=== PATIENT | male | born 1960 | race Caucasian/White ===

== ENCOUNTER 2017-09-07 08:00 | Outpatient (CLI) | payer BC ==
[2017-09-07 13:52] LABS: BASOPHILS # (AUTO) 0.1 10^3/uL (0.0-0.1); BASOPHILS % (AUTO) 0.7 %; EOSINOPHILS # (AUTO) 0.3 10^3/uL (0.0-0.7); EOSINOPHILS % (AUTO) 2.9 %; HCT - HEMATOCRIT 46.7 % (42.0-52.0); HGB - HEMOGLOBIN 15.5 g/dL (14.0-18.0); LYMPHOCYTES # (AUTO) 1.9 10^3/uL (1.5-3.5); LYMPHOCYTES % (AUTO) 17.2 %; MEAN CORPUSCULAR HEMOGLOBIN 29.9 pg (27.0-31.0); MEAN CORPUSCULAR HGB CONC 33.2 g/dL (32.0-36.0); MONOCYTES # (AUTO) 0.8 10^3/uL (0.0-1.0); NEUTROPHILS # (AUTO) 7.9 10^3/uL (1.5-6.6); NEUTROPHILS % (AUTO) 72.2 %; RED BLOOD COUNT 5.18 10^6/uL (4.70-6.10); RED CELL DISTRIBUTION WIDTH 13.7 % (12.0-15.0); UNCORRECTED WHITE BLOOD COUNT 10.9 x10^3/uL; WHITE BLOOD COUNT 10.9 x10^3/uL (4.8-10.8)
[2017-09-07 14:39] LABS: ALBUMIN/GLOBULIN RATIO 1.1 (1.0-2.2); BILIRUBIN,TOTAL 0.9 mg/dL (0.2-1.0); BUN - BLOOD UREA NITROGEN 10 mg/dL (6-20); CALCIUM 9.4 mg/dL (8.5-10.3); CARBON DIOXIDE - CO2 25 mmol/L (21-32); CHLORIDE 103 mmol/L (101-111); CHOL/HDL RATIO 4.6 (<5.0); CHOLESTEROL 202 mg/dL; CREATININE 0.8 mg/dL (0.6-1.2); GFR - MDRD 99 (>89); GLUCOSE 97 mg/dL (70-100); HDL CHOLESTEROL 44 mg/dL; LDL/HDL RATIO 2.8 (<3.6); SODIUM 136 mmol/L (135-145); TRIGLYCERIDES 178 mg/dL; VLDL CHOLESTEROL 36 mg/dL
== END 2017-09-07 08:01 | disposition home or self-care (01) ==
LOC: LAB.WCP 08:00
PROVIDERS: ATTEND Family Medicine
DX: Z00.00 Encounter for general adult medical examination without abnormal findings (principal); I10 Essential (primary) hypertension; Z12.5 Encounter for screening for malignant neoplasm of prostate
CPT/HCPCS: 36415; 80053; 80061; 84153; 85025

== ENCOUNTER 2017-10-01 09:10 | Outpatient (CLI) | payer BC ==
[2017-10-01] MEDS ORDERED: BARIUM SULFATE 148 GM POWDER PO ONE (10:19)
[2017-10-01] MEDS ORDERED: SIMETHICONE/SOD BICARB/CIT AC 1 EACH PACKET PO ONE (10:19)
[2017-10-01] MEDS ORDERED: BARIUM SULFATE 135 ML BOTTLE PO ONE (10:19)
--- NOTE | 2017-10-01 12:49 | XRAY Report ---
UPPER GI WITH AIR: 10/01/2017 CLINICAL INDICATION: Dysphagia. FINDINGS: Initial virtual recruiter view of the abdomen demonstrates a normal bowel gas pattern. Single and isadora ble contrast upper GI was performed. The esophagus is normal in caliber. Tertiary contractions were occasionally visualized. A 13-mm barium pill passed freely through the esophagus and into the stoma ch. No esophageal ulceration or mass lesion is identified. Gastroesophageal reflux was seen through out the course of the study. The stomach demonstrates a normal fold pattern. No gastric ulceration or mass lesion is seen. The duodenal cap distends normally. The duodenal C loop is unremarkable. C ontrast passed freely in the more distal small bowel loops. IMPRESSION: GASTROESOPHAGEAL REFLUX. NO EVIDENCE OF ESOPHAGEAL STRICTURING. NO ULCERATION OR MASS LESION. FLUOROSCOPY TIME: 3 minutes; 27 spot images obtained. JOB #: [id number] EXT JOB #:[id number]
== END 2017-10-01 09:11 | disposition home or self-care (01) ==
LOC: DI 09:10
PROVIDERS: ATTEND Family Medicine
DX: K21.9 Gastro-esophageal reflux disease without esophagitis (principal)
CPT/HCPCS: 74247; A9270

== ENCOUNTER 2017-10-13 07:13 | Day surgery (SDC) | payer BC ==
[2017-10-13] MEDS ORDERED: LACTATED RINGERS 1,000 ML IV ONE ×2 (07:39→09:22)
[2017-10-13] MEDS ORDERED: fentaNYL 100 MCG/2 ML VIAL IVP ONE (08:26)
[2017-10-13] MEDS ORDERED: GLUCAGON 1 MG/ML VIAL IM ONE (08:26)
[2017-10-13] MEDS ORDERED: MIDAZOLAM 2 MG/2 ML VIAL IVP ONE (08:26)
[2017-10-13] MEDS ORDERED: ONDANSETRON 4 MG/2 ML VIAL IVP ONE (08:26)
[2017-10-13] MEDS ORDERED: BENZOCAINE/TETRACAINE/BUTAMBEN SPRAY 56 GM TOP ONE (09:19)
[2017-10-13] MEDS ORDERED: ONDANSETRON ODT 4 MG TABLET ONE (09:58)
[2017-10-13] MEDS ORDERED: ONDANSETRON 4 MG/2 ML VIAL ONE (10:00)
[2017-10-13 10:02] VITALS: BP 107/75
== END 2017-10-13 07:14 | disposition home or self-care (01) ==
LOC: SDS 07:13
PROVIDERS: ATTEND Surgery
PROC: 0DJD8ZZ Inspection of Lower Intestinal Tract, Via Natural or Artificial Opening Endoscopic (ICD-10-PCS; principal; 2017-10-13 08:15)
PROC: 0DB38ZX Excision of Lower Esophagus, Via Natural or Artificial Opening Endoscopic, Diagnostic (ICD-10-PCS; 2017-10-13 08:15)
DX: Z12.11 Encounter for screening for malignant neoplasm of colon (principal); R13.10 Dysphagia, unspecified; K29.80 Duodenitis without bleeding; K20.9 Esophagitis, unspecified
CPT/HCPCS: 43239; 45378; A9270; J7120